=== PATIENT | male | born 1945 | race Caucasian/White ===

== ENCOUNTER 2016-08-28 09:33 | Emergency (ER) | payer OTHER ==
[~2016-08-28] VITALS: Ht 188 cm; Wt 99.0 kg
[2016-08-28 09:53] VITALS: BP 130/76; PULSE 80; RESP 16; TEMP 97.9
[2016-08-28] MEDS ORDERED: antidepressant (10:45)
[2016-08-28] MEDS ORDERED: ZOCO40TA PO (10:45)
[2016-08-28] MEDS ORDERED: antihypertensive (10:45)
[2016-08-28] MEDS ORDERED: CARB200T PO (10:45)
[2016-08-28] MEDS ORDERED: GABA300C5 PO (10:45)
--- NOTE | 2016-08-28 10:59 | PD ---
HPI Chief Complaint: Dizziness Time Seen by Provider: 10:39 Travel History International Travel<30 days: No Contact w/Intl Traveler<30days: No Traveled to known affect area: No History of Present Illness HPI 70-year-old male with history of seizure disorder, syncope, here for evaluation of head injury after possible syncopal event. At around 4:00 AM the patient was on his patio. He then walked into his house, but realized that his hearing aids on the ground and that he had a lump on his head. He does not recall falling or passing out. He does not believe he had a seizure as he usually has an aura prior to his seizures. He is not on any antiplatelets or anticoagulate. He now complains of right posterior/lateral head pain. No chest pain or dyspnea. No neck pain. No pain in any other joint or extremity. PFSH Past Medical History Hx Anticoagulant Therapy: Yes (asa 81mg) Depression: Yes Cardiovascular Problems: Yes (htn on meds) High Cholesterol: Yes Diminished Hearing: Yes (wears hearing aides bilat) Hypertension: Yes Seizures: Yes Influenza Vaccination: Yes Past Surgical History Surgical History: No Previous Surgery Social History Alcohol Use: Yes (rare) Tobacco Use: Yes (cigar occasionally) Substance Use: No Allergies-Medications (Allergen,Severity, Reaction): Coded Allergies: Penicillin (Verified Allergy, Unknown, Anaphylaxis, 08/28/16) Septra (Verified Allergy, Unknown, 08/28/16) Reported Meds & Prescriptions Reported Meds & Active Scripts Active Reported Aspirin Low Dose (Aspirin) 81 Mg Chew 81 Mg CHEW DAILY Zocor (Simvastatin) 40 Mg Tab 40 Mg PO DAILY Gabapentin 300 Mg Cap 900 Mg PO HS Carbamazepine 200 Mg Tab 200 Mg PO BID [antihypertensive] [antidepressant] Review of Systems Except as stated in HPI: all other systems reviewed are Neg Physical Exam Narrative GENERAL: Well-developed, well-nourished, awake, alert, no acute distress. SKIN: Right posterior/lateral scalp abrasion, superficial, no active bleeding, moderate-sized underlying hematoma. HEAD: Skin exam as above. Normocephalic. EYES: Pupils equal and round. No scleral icterus. No injection or drainage. ENT: No nasal bleeding or discharge. Mucous membranes pink and moist. NECK: Trachea midline. No JVD. No midline vertebral step-off or tenderness. CARDIOVASCULAR: Regular rate and rhythm. RESPIRATORY: No accessory muscle use. Clear to auscultation. Breath sounds equal bilaterally. GASTROINTESTINAL: Abdomen soft, non-tender, nondistended. MUSCULOSKELETAL: No obvious deformities. No clubbing. No cyanosis. No edema. NEUROLOGICAL: Awake and alert. No obvious cranial nerve deficits. Motor grossly within normal limits. Normal speech. PSYCHIATRIC: Appropriate mood and affect; insight and judgment normal. Data Data Last Documented VS Vital Signs Date Time Temp Pulse Resp B/P Pulse Ox O2 Delivery O2 Flow Rate FiO2 08/28/16 11:04 98 Room Air 08/28/16 09:53 97.9 80 16 130/76 Orders Electrocardiogram (08/28/16 10:54) Basic Metabolic Panel (Bmp) (08/28/16 10:54) Complete Blood Count With Diff (08/28/16 10:54) Ckmb (Isoenzyme) Profile (08/28/16 10:54) Troponin I (08/28/16 10:54) Act Partial Throm Time (Ptt) (08/28/16 10:54) Prothrombin Time / Inr (Pt) (08/28/16 10:54) Ct Brain W/O Iv Contrast(Rout) (08/28/16 10:54) Ct Cerv Spine W/O Contrast (08/28/16 10:54) Ecg Monitoring (08/28/16 10:54) Iv Access Insert/Monitor (08/28/16 10:54) Oximetry (08/28/16 10:54) Sodium Chloride 0.9% Flush (Ns Flush) (08/28/16 11:00) Tetanus/Diphtheria Tox Adult (Tetanus/Di (08/28/16 11:00) Labs Laboratory Tests Test 08/28/16 11:01 White Blood Count 6.2 TH/MM3 Red Blood Count 4.28 MIL/MM3 Hemoglobin 13.4 GM/DL Hematocrit 39.8 % Mean Corpuscular Volume 93.0 FL Mean Corpuscular Hemoglobin 31.2 PG Mean Corpuscular Hemoglobin 33.6 % Concent Red Cell Distribution Width 11.6 % Platelet Count 285 TH/MM3 Mean Platelet Volume 6.2 FL Neutrophils (%) (Auto) 81.7 % Lymphocytes (%) (Auto) 9.1 % Monocytes (%) (Auto) 7.1 % Eosinophils (%) (Auto) 0.9 % Basophils (%) (Auto) 1.2 % Neutrophils # (Auto) 5.0 TH/MM3 Lymphocytes # (Auto) 0.6 TH/MM3 Monocytes # (Auto) 0.4 TH/MM3 Eosinophils # (Auto) 0.1 TH/MM3 Basophils # (Auto) 0.1 TH/MM3 CBC Comment DIFF FINAL Differential Comment Prothrombin Time 10.4 SEC Prothromb Time International 0.9 RATIO Ratio Activated Partial 27.1 SEC Thromboplast Time Sodium Level 135 MEQ/L Potassium Level 4.4 MEQ/L Chloride Level 101 MEQ/L Carbon Dioxide Level 23.8 MEQ/L Anion Gap 10 MEQ/L Blood Urea Nitrogen 11 MG/DL Creatinine 0.88 MG/DL Estimat Glomerular Filtration 86 ML/MIN Rate Random Glucose 114 MG/DL Calcium Level 9.1 MG/DL Total Creatine Kinase 72 U/L Troponin I LESS THAN 0.02 NG/ML MDM Medical Decision Making Medical Screen Exam Complete: Yes Emergency Medical Condition: Yes Interpretation(s) EKG: Sinus, rate 77, left axis deviation, normal intervals, no acute ischemic abnormality. Differential Diagnosis Syncope, seizure, intracranial trauma, cervical spine injury Narrative Course Vital signs show heart rate 80, blood pressure 130/76, pulse ox 98% on room air , oral temp of 97.9F. CBC is essentially unremarkable. BMP is unremarkable. Cardiac enzymes are negative. CT head shows no acute intracranial abnormality. CT cervical spine shows degenerative changes without acute fracture. Tetanus updated. Patient and the patient's were made aware of all findings. He is resting comfortably. He tells me that he thinks he may have passed out because he did not sleep well last night and it was hot in his house. He would like to be discharged home and will follow-up with his primary care physician at the [facility] this week. He was informed on when to return to the emergency department. He verbalizes understanding and agreement with plan. Diagnosis Primary Impression: Closed head injury Qualified Code: S09.90XA - Closed head injury, initial encounter Additional Impression: Scalp abrasion Qualified Code: S00.01XA - Scalp abrasion, initial encounter Referrals: Primary Care Physician 3 days Additional Instructions: Follow-up with your primary care physician this week. Keep scalp wound clean with soap and water and apply triple antibiotic ointment. Return to the emergency department for worsening symptoms or any other concerns as discussed. Disposition: 01 DISCHARGE HOME Condition: Stable Tinoco,Ankush N MD Aug 28, 2016 10:59
[2016-08-28] MEDS ORDERED: SODIUM CHLORIDE 0.9% FLUSH 5 ML FLUSH IVF PRN (11:00)
[2016-08-28] MEDS ORDERED: TETANUS/DIPHTHERIA TOXOID ADULT 0.5 ML VIAL IM ONE (11:00)
[2016-08-28 11:04] VITALS: O2SAT 98
[2016-08-28 11:08] LABS: BASOPHIL # 0.1 TH/MM3 (0-0.2); BASOPHIL % 1.2 % (0.0-2.0); EOSINOPHIL # 0.1 TH/MM3 (0-0.4); EOSINOPHIL % 0.9 % (0.0-4.0); HEMATOCRIT 39.8 % (39.0-51.0); LYMPH % 9.1 % (9.0-44.0); LYMPHOCYTE # 0.6 TH/MM3 (1.0-4.8); MEAN CORPUSCULAR HEMOGLOBIN 31.2 PG (27.0-34.0); MEAN CORPUSCULAR HGB CONC 33.6 % (32.0-36.0); MONO % 7.1 % (0.0-8.0); NEUT % 81.7 % (16.0-70.0); PLATELET COUNT 285 TH/MM3 (150-450); RED BLOOD COUNT 4.28 MIL/MM3 (4.50-5.90); RED CELL DISTRIBUTION WIDTH 11.6 % (11.6-17.2); WHITE BLOOD COUNT 6.2 TH/MM3 (4.0-11.0)
[2016-08-28 11:16] LABS: CHLORIDE 101 MEQ/L (98-107); HEMO FLAGS DIFF FINAL; POTASSIUM 4.4 MEQ/L (3.5-5.1); SODIUM (NA) 135 MEQ/L (136-145)
[2016-08-28 11:19] LABS: ANION GAP 10 MEQ/L (5-15); BICARBONATE 23.8 MEQ/L (21.0-32.0)
[2016-08-28 11:20] LABS: APTT (PATIENT) 27.1 SEC (24.3-30.1); BLOOD UREA NITROGEN 11 MG/DL (7-18); INTERNATIONAL NORMALIZED RATIO 0.9 RATIO; PROTHROMBIN TIME - PATIENT 10.4 SEC (9.8-11.6)
[2016-08-28 11:23] LABS: GLOMERULAR FILTRATION RATE 86 ML/MIN (>89)
[2016-08-28 11:31] LABS: CREATINE KINASE 72 U/L (39-308)
[2016-08-28] MEDS ORDERED: ASPI81CH37 CHEW (11:31)
--- NOTE | 2016-08-28 12:22 | RADHPO ---
EXAM DATE/TIME: 08/28/2016 11:32 [facility] COMPARISON: No previous studies available for comparison. INDICATIONS : Possible syncopal episode with fall today, laceration to right side of head. RADIATION DOSE: 68.33 CTDIvol (mGy) MEDICAL HISTORY : Seizures. Hypertension. SURGICAL HISTORY : None. ENCOUNTER: Initial ACUITY: 1 day PAIN SCALE: 4/10 LOCATION: Right head TECHNIQUE: Multiple contiguous axial images were obtained of the head. Using automated exposure control and adj ustment of the mA and/or kV according to patient size, radiation dose was kept as low as reasonably a chievable to obtain optimal diagnostic quality images. FINDINGS: CEREBRUM: The ventricles are normal for age. No evidence of midline shift, mass lesion, hemorrhage or acute in farction. No extra-axial fluid collections are seen. POSTERIOR FOSSA: The cerebellum and brainstem are intact. The 4th ventricle is midline. The cerebellopontine angle i s unremarkable. EXTRACRANIAL: The visualized portion of the orbits is intact. SKULL: Right parietal scalp hematoma. The calvaria is intact. No evidence of skull fracture. CONCLUSION: No acute intracranial findings. Ryder Quezada MD on August 28, 2016 at 12:20 Board Certified Radiologist. This report was verified electronically.
--- NOTE | 2016-08-28 12:26 | RADHPO ---
EXAM DATE/TIME: 08/28/2016 11:32 [facility] COMPARISON: No previous studies available for comparison. INDICATIONS : Possible syncopal episode with fall today, laceration to right side of head RADIATION DOSE: 26.63 CTDIvol (mGy) MEDICAL HISTORY : Seizures. Hypertension. SURGICAL HISTORY : None. ENCOUNTER: Initial ACUITY: 1 day PAIN SCALE: 0/10 LOCATION: Bilateral neck TECHNIQUE: Volumetric scanning of the cervical spine was performed. Multiplanar reconstructions in the sagittal, coronal and oblique axial planes were performed. Using automated exposure control and adjustment o f the mA and/or kV according to patient size, radiation dose was kept as low as reasonably achievable to obtain optimal diagnostic quality images. FINDINGS: VERTEBRAE: Normal vertebral body height. No evidence of fracture. ALIGNMENT: 2 mm retrolisthesis C5 on C6. C2-C3: No evidence of focal disc protrusion. Central canal normal diameter. Neural foraminal diameters withi n normal limits. C3-C4: No evidence of focal disc protrusion. Central canal normal diameter. Neural foraminal diameters withi n normal limits. C4-C5: Broad-based disc osteophyte complex. Mild bilateral facet arthrosis. Mild central canal narrowing. Mi ld bilateral neural foraminal narrowing. C5-C6: Broad-based disc osteophyte complex. Moderate bilateral facet arthrosis. Mild to moderate central can al narrowing. Mild bilateral neuroforaminal narrowing. C6-C7: Broad-based disc osteophyte complex. Moderate bilateral facet arthrosis. Moderate central canal narro wing. Moderate bilateral neural foraminal narrowing. C7-T1: No evidence of focal disc protrusion. Central canal normal diameter. Neural foraminal diameters withi n normal limits. CONCLUSION: No evidence of fracture. Multilevel degenerative findings. Ryder Quezada MD on August 28, 2016 at 12:21 Board Certified Radiologist. This report was verified electronically.
[2016-08-28 12:57] VITALS: BP 128/70; PULSE 82; RESP 16; O2SAT 98
--- NOTE | 2016-08-29 14:40 | EKG ---
Date Performed: 08/28/2016 Time Performed: 11:07:32 PTAGE: 70 years EKG: Sinus rhythm Left axis deviation Abnormal ECG NO PREVIOUS TRACING DOCTOR: Onur Oakley Interpretating Date/Time 08/29/2016 14:34:24
== END 2016-08-28 13:06 | disposition home or self-care (01) ==
LOC: PHED 09:33
DX: S00.01XA Abrasion of scalp, initial encounter (principal); I10 Essential (primary) hypertension; F17.290 Nicotine dependence, other tobacco product, uncomplicated; R94.31 Abnormal electrocardiogram [ECG] [EKG]; X58.XXXA Exposure to other specified factors, initial encounter; Y92.009 Unspecified place in unspecified non-institutional (private) residence as the place of occurrence of the external cause; Z23 Encounter for immunization
CPT/HCPCS: 70450; 72125; 80048; 82550; 84484; 85025; 85610; 85730; 90471; 90714; 93005

== ENCOUNTER 2017-09-21 09:04 | Observation (INO) | payer OTHER ==
[~2017-09-21] VITALS: Ht 188 cm; Wt 104.8 kg
[2017-09-21] VITALS (7 sets, daily range): BP systolic 109–157; BP diastolic 65–75; PULSE 73–80; RESP 16–20; TEMP 96.7–98.2; O2SAT 98–100
[~2017-09-21 09:04] MED LIST: ASPI81CH6 CHEW; CARB200T PO; GABA300C5 PO; IOHEXOL 350 MG/ML 10 ML VIAL (for RAD DIAG) IVCONTRAST ONE; ZOCO40TA PO; antidepressant; antihypertensive
[2017-09-21] MEDS ORDERED: DIAZ5 PO (09:24)
[2017-09-21] MEDS ORDERED: ASPI-183 PO (09:24)
[2017-09-21] MEDS ORDERED: SODIUM CHLORIDE 0.9% FLUSH 10 ML FLUSH IVF PRN (09:30)
--- NOTE | 2017-09-21 09:35 | PD ---
HPI Chief Complaint: Numbness/Tingling Time Seen by Provider: 09:19 Travel History International Travel<30 days: No Contact w/Intl Traveler<30days: No Traveled to known affect area: No History of Present Illness HPI This patient woke up this morning feeling okay. At 8:30 AM he abruptly developed speech slurring and some numbness in his left hand. He denies having weakness anywhere. No headache or confusion. No right sided symptoms. His symptoms lasted about 5 minutes and resolved. When he arrives to the emergency room he is speaking normally and his sensory loss has resolved. He has no history of stroke or TIA. He took a full strength aspirin this morning because of the symptoms. Severity was moderate. No alleviating factors. No exacerbating factors. He does have history of epilepsy but has not had a seizure in a while. He reports compliance with his medications. PFSH Past Medical History Hx Anticoagulant Therapy: Yes (asa 81mg) Depression: Yes Cardiovascular Problems: Yes (htn on meds) High Cholesterol: Yes Diminished Hearing: Yes (wears hearing aides bilat) Hypertension: Yes Seizures: Yes Social History Alcohol Use: Yes (rare) Tobacco Use: Yes (cigar occasionally) Substance Use: No Allergies-Medications (Allergen,Severity, Reaction): Coded Allergies: penicillin G (Unverified Allergy, Unknown, Anaphylaxis, 09/21/17) sulfamethoxazole (Unverified Allergy, Unknown, 09/21/17) trimethoprim (Unverified Allergy, Unknown, 09/21/17) Reported Meds & Prescriptions Reported Meds & Active Scripts Active Reported Mucus Relief ER (Guaifenesin) 600 Mg Tab 400 Mg PO DAILY PRN Zolpidem (Zolpidem Tartrate) 10 Mg Tab 5 Mg PO HS PRN Topamax (Topiramate) 100 Mg Tab 100 Mg PO BID Valium (Diazepam) 5 Mg Tab 5 Mg PO BID Aspirin 325 Mg Tab 325 Mg PO DAILY Review of Systems General / Constitutional: No: Fever Eyes: No: Visual changes HENT: No: Headaches Cardiovascular: No: Chest Pain or Discomfort Respiratory: No: Shortness of Breath Gastrointestinal: No: Abdominal Pain Genitourinary: No: Dysuria Musculoskeletal: No: Pain Skin: No Rash Neurologic: Positive: Slurred Speech, Seizures, Sensory Disturbance, No: Weakness Psychiatric: No: Depression Endocrine: No: Polydipsia Hematologic/Lymphatic: No: Easy Bruising Physical Exam Narrative GENERAL: Well-nourished, well-developed patient in no apparent distress. He is hard of hearing SKIN: Focused skin assessment reveals no rash and nodules. Skin is Warm and dry. HEAD: Atraumatic. Normocephalic. EYES: Pupils equal and round. No scleral icterus. No injection or drainage. ENT: No nasal bleeding or discharge. Mucous membranes pink and moist. NECK: Trachea midline. No JVD. CARDIOVASCULAR: Regular rate and rhythm. No murmur appreciated. RESPIRATORY: No accessory muscle use. Clear to auscultation. Breath sounds equal bilaterally. GASTROINTESTINAL: Abdomen soft, non-tender, nondistended. Hepatic and splenic margins not palpable. MUSCULOSKELETAL: No obvious deformities. No clubbing. No cyanosis. No edema. NEUROLOGICAL: Awake and alert. No obvious cranial nerve deficits. Motor grossly within normal limits. Normal speech. Sensation subjectively intact to sharp and light touch PSYCHIATRIC: Appropriate mood and affect; insight and judgment normal. Data Data Last Documented VS Vital Signs Date Time Temp Pulse Resp B/P (MAP) Pulse Ox O2 Delivery O2 Flow Rate FiO2 09/21/17 09:38 100 09/21/17 09:14 97.8 73 16 157/68 (97) Orders Orders Electrocardiogram (09/21/17 09:27) Prothrombin Time / Inr (Pt) (09/21/17:27) Act Partial Throm Time (Ptt) (09/21/17 09:27) Complete Blood Count With Diff (09/21/17 09:27) Basic Metabolic Panel (Bmp) (09/21/17 09:27) Ct Brain W/O Iv Contrast(Rout) (09/21/17 09:27) Ecg Monitoring (09/21/17:27) Iv Access Insert/Monitor (09/21/17 09:27) Oximetry (09/21/17 09:27) Sodium Chloride 0.9% Flush (Ns Flush) (09/21/17 09:30) Admit Order (Ed Use Only) (09/21/17 10:57) Labs Laboratory Tests Test 09/21/17 09:35 White Blood Count 4.5 TH/MM3 Red Blood Count 4.33 MIL/MM3 Hemoglobin 13.4 GM/DL Hematocrit 39.8 % Mean Corpuscular Volume 91.8 FL Mean Corpuscular Hemoglobin 31.0 PG Mean Corpuscular Hemoglobin Concent 33.7 % Red Cell Distribution Width 11.7 % Platelet Count 228 TH/MM3 Mean Platelet Volume 6.3 FL Neutrophils (%) (Auto) 72.9 % Lymphocytes (%) (Auto) 16.9 % Monocytes (%) (Auto) 6.2 % Eosinophils (%) (Auto) 3.3 % Basophils (%) (Auto) 0.7 % Neutrophils # (Auto) 3.3 TH/MM3 Lymphocytes # (Auto) 0.8 TH/MM3 Monocytes # (Auto) 0.3 TH/MM3 Eosinophils # (Auto) 0.1 TH/MM3 Basophils # (Auto) 0.0 TH/MM3 CBC Comment DIFF FINAL Differential Comment Prothrombin Time 10.1 SEC Prothromb Time International Ratio 1.0 RATIO Activated Partial Thromboplast Time 27.5 SEC Blood Urea Nitrogen 17 MG/DL Creatinine 1.10 MG/DL Random Glucose 107 MG/DL Calcium Level 8.6 MG/DL Sodium Level 140 MEQ/L Potassium Level 4.1 MEQ/L Chloride Level 106 MEQ/L Carbon Dioxide Level 26.8 MEQ/L Anion Gap 7 MEQ/L Estimat Glomerular Filtration Rate 66 ML/MIN [facility] Medical Decision Making Medical Screen Exam Complete: Yes Emergency Medical Condition: Yes Medical Record Reviewed: Yes Differential Diagnosis TIA, CVA, intracranial hemorrhage, postictal state Narrative Course I have reviewed the patient's electronic medical record. he was here in 2017 for head injury Patient may have had a TIA. He is not a stroke alert as his symptoms have resolved. He is not a TPA candidate because of the fact his symptoms are gone. They were fairly brief however only a few minutes I've ordered neurologic workup to include EKG and brain CT and labs EKG shows sinus rhythm and lab studies are normal Brain CT shows a new subacute evolving infarct on the left side I would've expected a right sided infarct given his left hand numbness Regardless he is admitted for ischemic CVA and I reviewed with the hospitalist Diagnosis Primary Impression: Neurologic deficit due to acute ischemic cerebrovascular accident (CVA) Admitting Information Admitting Physician Requests: Garland Dowell MD Sep 21, 2017 09:35
[2017-09-21 09:44] LABS: AUTOMATED NEUTROPHIL # 3.3 TH/MM3 (1.8-7.7); BASOPHIL % 0.7 % (0.0-2.0); EOSINOPHIL # 0.1 TH/MM3 (0-0.4); EOSINOPHIL % 3.3 % (0.0-4.0); HEMATOCRIT 39.8 % (39.0-51.0); HEMOGLOBIN 13.4 GM/DL (13.0-17.0); LYMPH % 16.9 % (9.0-44.0); LYMPHOCYTE # 0.8 TH/MM3 (1.0-4.8); MEAN CELL VOLUME 91.8 FL (80.0-100.0); MEAN CORPUSCULAR HGB CONC 33.7 % (32.0-36.0); MEAN PLATELET VOLUME 6.3 FL (7.0-11.0); MONO % 6.2 % (0.0-8.0); MONOCYTE # 0.3 TH/MM3 (0-0.9); NEUT % 72.9 % (16.0-70.0); PLATELET COUNT 228 TH/MM3 (150-450); RED BLOOD COUNT 4.33 MIL/MM3 (4.50-5.90); RED CELL DISTRIBUTION WIDTH 11.7 % (11.6-17.2); WHITE BLOOD COUNT 4.5 TH/MM3 (4.0-11.0)
[2017-09-21] MEDS ORDERED: GUAI600T11 PO (09:53)
[2017-09-21] MEDS ORDERED: ZOLP10TA3 PO (09:53)
[2017-09-21] MEDS ORDERED: TOPI100 PO (09:53)
[2017-09-21 09:54] LABS: CALCIUM 8.6 MG/DL (8.5-10.1)
--- NOTE | 2017-09-21 09:54 | RADRPT ---
EXAM DATE/TIME: 09/21/2017 09:37 [facility] COMPARISON: CT BRAIN W/O CONTRAST, August 28, 2016, 11:32. INDICATIONS : Resolved slurred speech. Left arm and hand tingling and numbness x 1 hour. Evaluate for cerebrovasc ular accident. RADIATION DOSE: 62.13 CTDIvol (mGy) MEDICAL HISTORY : Seizures. Hypertension. SURGICAL HISTORY : None. ENCOUNTER: Initial ACUITY: 1 day PAIN SCALE: 0/10 LOCATION: cranial TECHNIQUE: Multiple contiguous axial images were obtained of the head. Using automated exposure control and adj ustment of the mA and/or kV according to patient size, radiation dose was kept as low as reasonably a chievable to obtain optimal diagnostic quality images. DICOM format image data is available electro nically for review and comparison. FINDINGS: There is a focal area of decreased attenuation in the left frontal lobe measuring about 2.8 cm in ysabel meter most characteristic of an evolving subacute infarct. No mass or midline shift. No hydrocephalus . No abnormal extra-axial fluid collections. CONCLUSION: 1. Evolving small subacute infarct in the left frontal lobe which is a new finding since August 28. Kareem Graham MD on September 21, 2017 at 9:48 Board Certified Radiologist. This report was verified electronically.
[2017-09-21 09:55] LABS: BICARBONATE 26.8 MEQ/L (21.0-32.0)
[2017-09-21 09:57] LABS: PROTHROMBIN TIME - PATIENT 10.1 SEC (9.8-11.6)
[2017-09-21 09:58] LABS: CREATININE 1.1 MG/DL (0.60-1.30)
[2017-09-21] MEDS ORDERED: SODIUM CHLORIDE 0.9% FLUSH 10 ML FLUSH IV FLUSH PRN ×2 (11:00→11:15)
[2017-09-21] MEDS ORDERED: ONDANSETRON HCL 4 MG/2 ML VIAL IVP PRN (11:00)
[2017-09-21] MEDS ORDERED: NALOXONE HCL 0.4 MG/ML AMP IV PUSH PRN (11:00)
[2017-09-21] MEDS ORDERED: MAGNESIUM HYDROXIDE SUSP 30 ML CUP PO PRN (11:00)
--- NOTE | 2017-09-21 11:08 | HHI.HP ---
[facility] Admission Diagnosis acute ischemic CVA Diagnoses: Travel History International Travel<30 Days: No Contact w/Intl Traveler <30 Da: No Traveled to Known Affected Are: No History of Present Illness Mr. Dasilva is a 71 year old male. He reports that at approximately 8:30 AM this morning with slurred speech and numbness of his left hand, this occurred after he was awake and when he was talking with a repair man. Symptoms have not fully resolved but he has resolution of his speech back to baseline and improving weakness at his left hand.. CT scan in the ER is positive for evidence of acute CVA. No prior history of CVA or TIA is known by the patient. He has taken an aspirin at home with onset of symptoms. He does have a history of seizure in the past, his last seizure was approximately 3 months ago. No missed doses of medications. He does say in the past several months he is also been having frontal headaches. Review of Systems Constitutional: DENIES: Fatigue, Fever, Chills, Night Sweats Eyes: DENIES: Blurred vision, Diplopia, Eye inflammation Ears, nose, mouth, throat: DENIES: Tinnitus, Hearing loss, Vertigo Respiratory: DENIES: Cough, Wheezing, Shortness of breath Cardiovascular: DENIES: Chest pain, Palpitations, Syncope Gastrointestinal: DENIES: Abdominal pain, Black stools, Bloody stools, Constipation Musculoskeletal: DENIES: Joint pain, Muscle aches, Stiffness Integumentary: DENIES: Abnormal pigmentation, Nail changes, Pruritus, Rash Hematologic/lymphatic: DENIES: Bruising, Lymphadenopathy Immunologic/allergic: COMPLAINS OF: Eczema, Urticaria Neurologic: COMPLAINS OF: Localized weakness, Speech Problems, DENIES: Headache , Paresthesias Psychiatric: DENIES: Anxiety, Confusion, Depression Past Family Social History Past Medical History Seizure disorder Hypertension Hyperlipidemia Presbycusis Depression Mnire's disease Headaches Past Surgical History None Reported Medications Reported Meds & Active Scripts Active Reported Mucus Relief ER (Guaifenesin) 600 Mg Tab 400 Mg PO DAILY PRN Zolpidem (Zolpidem Tartrate) 10 Mg Tab 5 Mg PO HS PRN Topamax (Topiramate) 100 Mg Tab 100 Mg PO BID Valium (Diazepam) 5 Mg Tab 5 Mg PO BID Aspirin 325 Mg Tab 325 Mg PO DAILY Allergies: Coded Allergies: penicillin G (Unverified Allergy, Unknown, Anaphylaxis, 09/21/17) sulfamethoxazole (Unverified Allergy, Unknown, 09/21/17) trimethoprim (Unverified Allergy, Unknown, 09/21/17) Family History Alzheimer's disease in father Social History Alcohol Use: Yes (rare) Tobacco Use: Yes (cigar occasionally) Substance Use: No Physical Exam Vital Signs Vital Signs Date Time Temp Pulse Resp B/P (MAP) Pulse Ox O2 Delivery O2 Flow Rate FiO2 09/21/17 09:38 100 09/21/17 09:14 97.8 73 16 157/68 (97) 100 Physical Exam GENERAL: NAD, A&Ox3 HEAD: Normocephalic. NECK: Supple, trachea midline. No lymphadenopathy. EYES: No scleral icterus. No injection or drainage. CARDIOVASCULAR: Regular rate and rhythm without murmurs, gallops, or rubs. RESPIRATORY: Breath sounds equal bilaterally. No accessory muscle use. GASTROINTESTINAL: Abdomen soft, non-tender, nondistended. MUSCULOSKELETAL: No cyanosis, or edema. SKIN: Warm and dry. NEURO: Mild weakness at left hand. Laboratory Laboratory Tests Test 09/21/17 09:35 White Blood Count 4.5 Red Blood Count 4.33 Hemoglobin 13.4 Hematocrit 39.8 Mean Corpuscular Volume 91.8 Mean Corpuscular Hemoglobin 31.0 Mean Corpuscular Hemoglobin Concent 33.7 Red Cell Distribution Width 11.7 Platelet Count 228 Mean Platelet Volume 6.3 Neutrophils (%) (Auto) 72.9 Lymphocytes (%) (Auto) 16.9 Monocytes (%) (Auto) 6.2 Eosinophils (%) (Auto) 3.3 Basophils (%) (Auto) 0.7 Neutrophils # (Auto) 3.3 Lymphocytes # (Auto) 0.8 Monocytes # (Auto) 0.3 Eosinophils # (Auto) 0.1 Basophils # (Auto) 0.0 CBC Comment DIFF FINAL Differential Comment Prothrombin Time 10.1 Prothromb Time International Ratio 1.0 Activated Partial Thromboplast Time 27.5 Blood Urea Nitrogen 17 Creatinine 1.10 Random Glucose 107 Calcium Level 8.6 Sodium Level 140 Potassium Level 4.1 Chloride Level 106 Carbon Dioxide Level 26.8 Anion Gap 7 Estimat Glomerular Filtration Rate 66 Result Diagram: 09/21/1735 09/21/1735 Caprini VTE Risk Assessment Caprini VTE Risk Assessment: No/Low Risk (score <= 1) Caprini Risk Assessment Model Point Value = 1 Point Value = 2 Point Value = 3 Point Value = 5 Age 41-60 Minor surgery BMI > 25 kg/m2 Swollen legs Varicose veins or History of unexplained or recurrent spontaneous Oral contraceptives or hormone replacement Sepsis (< 1 month) Serious lung disease, including pneumonia (< 1 month) Abnormal pulmonary function Acute myocardial infarction Congestive heart failure (< 1 month) History of inflammatory bowel disease Medical patient at bed rest Age 61-74 Arthroscopic surgery Major open surgery (> 45 min) Laparoscopic surgery (> 45 min) Malignancy Confined to bed (> 72 hours) Immobilizing plaster cast Central venous access Age >= 75 History of VTE Family history of VTE Factor V Leiden Prothrombin [id number] Lupus anticoagulant Anticardiolipin antibodies Elevated serum homocysteine Heparin-induced thrombocytopenia Other congenital or acquired thrombophilia Stroke (< 1 month) Elective arthroplasty Hip, pelvis, or leg fracture Acute spinal cord injury (< 1 month) Prophylaxis Regimen Total Risk Factor Score Risk Level Prophylaxis Regimen 0-1 Low Early ambulation 2 Moderate Order ONE of the following: *Sequential Compression Device (SCD) *Heparin 5000 units SQ BID 3-4 Higher Order ONE of the following medications: *Heparin 5000 units SQ TID *Enoxaparin/Lovenox 40 mg SQ daily (WT < 150 kg, CrCl > 30 mL/min) *Enoxaparin/Lovenox 30 mg SQ daily (WT < 150 kg, CrCl > 10-29 mL/min) *Enoxaparin/Lovenox 30 mg SQ BID (WT < 150 kg, CrCl > 30 mL/min) AND/OR *Sequential Compression Device (SCD) 5 or more Highest Order ONE of the following medications: *Heparin 5000 units SQ TID (Preferred with Epidurals) *Enoxaparin/Lovenox 40 mg SQ daily (WT < 150 kg, CrCl > 30 mL/min) *Enoxaparin/Lovenox 30 mg SQ daily (WT < 150 kg, CrCl > 10-29 mL/min) *Enoxaparin/Lovenox 30 mg SQ BID (WT < 150 kg, CrCl > 30 mL/min) AND *Sequential Compression Device (SCD) Assessment and Plan Problem List: (1) Neurologic deficit due to acute ischemic cerebrovascular accident (CVA) ICD Code: I63.9 - Cerebral infarction, unspecified; R29.818 - Other symptoms and signs involving the nervous system Status: Acute Assessment and Plan 71-year-old male admitted secondary to acute CVA symptoms Acute CVA Recurrent headaches Positive CT findings Obtain MRI Neurology consult Carotid ultrasound Echocardiogram Follow neurologic status Seizure disorder No recent seizure Continue baseline treatments Follow clinically Hypertension Continue baseline treatment Follow blood pressures Adjust treatments as needed Hyperlipidemia Continue present treatment Follow as an outpatient Presbycusis Mnire's disease Continue hearing aids as needed Depression Continue baseline treatment DVT prophylaxis SCDs Yohannes Meneses MD Sep 21, 2017 11:08
[2017-09-21] MEDS ORDERED: GLUCAGON 1 MG/ML VIAL OTHER PRN (11:15)
[2017-09-21] MEDS ORDERED: DEXTROSE 50% IN WATER 50 ML VIAL(D50) IV PUSH PRN (11:15)
--- NOTE | 2017-09-21 11:58 | RADRPT ---
EXAM DATE/TIME: 09/21/2017 11:25 [facility] COMPARISON: No previous studies available for comparison. INDICATIONS : Cerebrovascular accident. MEDICAL HISTORY : Seizures. Hypertension. SURGICAL HISTORY : None. ENCOUNTER: Initial ACUITY: 1 day PAIN SCORE: 0/10 LOCATION: Bilateral neck PEAK SYSTOLIC VELOCITIES (cm/sec): ICA/CCA RATIO: Right: 0.9 Left: 0.9 ICA: Right: 72 Left: 79 CCA: Right: 81 Left: 90 ECA: Right: 88 Left: 98 VERTEBRAL: Right: 53 antegrade Left: 36 antegrade Elevated flow velocities and ICA/CCA ratios have been found to correlate with increased degrees of vessel stenosis, calculated as percentage of diameter relative to a normal segment of distal ICA/CCA FINDINGS: RIGHT CAROTID: No significant stenosis is visualized. The waveforms are within normal limits. LEFT CAROTID: No significant stenosis is visualized. The waveforms are within normal limits. VERTEBRAL ARTERIES: Antegrade flow is seen in both vertebral arteries. MISCELLANEOUS: None. CONCLUSION: 1. Mild plaque formation in the carotid arteries bilaterally. No hemodynamically significant stenosis . Kareem Graham MD on September 21, 2017 at 11:55 Board Certified Radiologist. This report was verified electronically.
[2017-09-21] MEDS: INSULIN ASPART SUPPLEMENTAL SCALE SQ SCH ×3 (12:00→21:00)
[2017-09-21] MEDS ORDERED: ZOLPIDEM TARTRATE 10 MG TAB PO PRN (12:00)
--- NOTE | 2017-09-21 12:47 | RADRPT ---
EXAM DATE/TIME: 09/21/2017 12:33 [facility] COMPARISON: No previous studies available for comparison. INDICATIONS : Stroke. Left sided weakness. MEDICAL HISTORY : Seizures. Cardiac murmurs. SURGICAL HISTORY : None. ENCOUNTER: Initial ACUITY: 1 day PAIN SCORE: 4/10 LOCATION: Bilateral cranial TECHNIQUE: Multiplanar, multisequence MRI of the brain was performed without contrast. FINDINGS: CEREBRUM: T2 signal abnormality in the left frontal lobe which extends to the cortex, likely old infarct. The v entricles are normal for age. No evidence of midline shift, mass lesion, hemorrhage or acute infarct ion. No extraaxial fluid collections are seen. The pituitary gland and suprasellar cistern are norm al in configuration. WHITE MATTER: A few scattered foci of bright T2 signal abnormalities are seen in the white matter. POSTERIOR FOSSA: The cerebellum and brainstem are intact. The 4th ventricle is midline. The cerebellopontine angle is unremarkable. The cerebellar tonsils are normal in position. DIFFUSION IMAGING: No focal areas of restricted diffusion are seen. No evidence of acute infarction. EXTRACRANIAL: The visualized portions of the orbits and paranasal sinuses are unremarkable. CONCLUSION: 1. Old small infarct left frontal lobe. 2. No acute infarct seen. 3. Minimal nonspecific white matter changes. Master Skaggs MD on September 21, 2017 at 12:44 Board Certified Radiologist. This report was verified electronically.
--- NOTE | 2017-09-21 13:15 | RADRPT ---
EXAM DATE/TIME: 09/21/2017 12:33 [facility] COMPARISON: MRI BRAIN W/O CONTRAST, September 21, 2017, 12:33. INDICATIONS : Stroke. Left arm weakness for one day. MEDICAL HISTORY : Seizures. Cardiac murmurs SURGICAL HISTORY : None. ENCOUNTER: Initial ACUITY: 1 day PAIN SCORE: 4/10 LOCATION: Right arm. Please note a normal MRA of the brain does not entirely exclude the possibility of a small aneurysm, nor the possibility of distal intracranial vessel disease. TECHNIQUE: 3D time of flight MRA was performed. Source images, multiplanar STS MIP, and 3D volume MIP reconstru ctions were reviewed. FINDINGS: Both distal internal carotid arteries are widely patent. The basilar artery is patent Examination of the middle cerebral circulation demonstrates an area of narrowing in the distal M1 seg ment on the right. There appear to be significantly fewer M3 branches seen on the right than the left as well. This would suggest possible embolic disease. The anterior cerebral circulation is within normal limits bilaterally. The middle cerebral circulatio n on the left is normal in appearance. The posterior cerebral circulation is widely patent. 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 Yohannes Escamilla MD on September 21, 2017 at 13:11 Board Certified Radiologist. This report was verified electronically.
--- NOTE | 2017-09-21 13:23 | EKG ---
Date Performed: 09/21/2017 Time Performed: 09:34:44 PTAGE: 71 years EKG: Sinus rhythm RIGHT BUNDLE BRANCH BLOCK LEFT ANTERIOR FASCICULAR BLOCK Compared to previous tracing right bundle b ranch block is new ABNORMAL ECG PREVIOUS TRACING : 08/28/2016 11.07 DOCTOR: Archana De Los Santos Interpretating Date/Time 09/21/2017 13:22:09
--- NOTE | 2017-09-21 15:41 | MB ---
cc: Ranjith Rust MD DATE OF CONSULT: HISTORY OF PRESENT ILLNESS: He is 71 years old, seen in consultation. The patient was doing well this morning when he developed slurring of his speech when he was talking to someone working his air conditioner at around 8:30 in the morning. There was some numbness in the left hand. The symptoms improved significantly, though the left-handed deficits are not completely resolved. No longer slurring. He came to the emergency room and had a CT brain that showed subacute infarct left frontal lobe but the MRI brain subsequently describes this as an old small left frontal lobe infarct. Evidently, this finding did not correlate with his left upper extremity symptoms. The carotid ultrasound showed mild plaque and the MRA head shows possible distal embolic disease, right MCA. EKG shows sinus rhythm. The patient rarely takes any aspirin. He takes simvastatin on a regular basis. He has a history of seizures and had been on carbamazepine. He follows at the [facility]. He was apparently not doing well in terms of seizure control with the carbamazepine and was switched to Topamax. Topamax was 100 mg twice a day and it made him dizzy and recently he dropped to 50 mg a day to the advice of the neurologist. He has had seizures since 2001. No seizures recently. He was started on aspirin. NEUROLOGIC: Showed normal mentation. His speech is probably baseline. His spouse arrived right during the evaluation and felt his speech was okay. His left upper extremity is minimally weak, but there is a little bit of pronation drift and probably fine finger coordination impairment on the left. The left lower extremity exam is showing symmetrical strength to the right. Reflexes were 1 to 2+ throughout. Plantar responses flexor. ASSESSMENT AND PLAN: Partially resolved neurologic symptoms including dysarthria, which is improved, and left upper extremity weakness, which is minimally present at this point. Old stroke, small, left frontal, which is incidental at this point. History of seizures apparently since 2001, currently on small dose of topiramate at home as discussed above as he had some dizziness with higher dose. Here in the hospital, the topiramate dose was increased to 100 mg twice a day. Check a lipid profile and I am going to order CT angio head and neck taking consideration the MRA head findings and the clinical picture suggesting some residual deficits despite a negative MRI brain for an acute process. Thank you for asking us to assist in his care. 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 MD MATILDE Thompson/TONI , 03:15 PM , 03:40 PM
[2017-09-21 16:35] LABS: HEMOGLOBIN A1C 5.1 % (4.3-6.0)
[2017-09-21] MEDS: DIAZEPAM 5 MG TAB PO SCH (16:54)
[2017-09-21 17:46] LABS: CHOLESTEROL/ HDL RATIO 3.23 RATIO; HDL CHOLESTEROL 38.3 MG/DL (40.0-60.0)
[2017-09-21] MEDS ORDERED: SODIUM CHLORIDE 0.9% FLUSH 10 ML FLUSH IV FLUSH SCH (21:00)
[2017-09-21] MEDS ORDERED: DIAZEPAM 5 MG TAB PO SCH (21:00)
[2017-09-21] MEDS: TOPIRAMATE 100 MG TAB PO SCH (21:02)
[2017-09-21] MEDS: SODIUM CHLORIDE 0.9% FLUSH 10 ML FLUSH IV FLUSH SCH (21:02)
[2017-09-22] VITALS: BP 119/57; PULSE 69; RESP 16; TEMP 97.4; O2SAT 98
[2017-09-22 04:00] VITALS: BP 137/81; PULSE 83; RESP 16; TEMP 98.2; O2SAT 98
[2017-09-22 06:04] LABS: AUTOMATED NEUTROPHIL # 4.4 TH/MM3 (1.8-7.7); BASOPHIL % 0.7 % (0.0-2.0); EOSINOPHIL # 0.2 TH/MM3 (0-0.4); EOSINOPHIL % 3.7 % (0.0-4.0); HEMATOCRIT 39.9 % (39.0-51.0); HEMOGLOBIN 13.4 GM/DL (13.0-17.0); LYMPH % 13.5 % (9.0-44.0); LYMPHOCYTE # 0.7 TH/MM3 (1.0-4.8); MEAN CELL VOLUME 91.5 FL (80.0-100.0); MEAN CORPUSCULAR HEMOGLOBIN 30.8 PG (27.0-34.0); MEAN CORPUSCULAR HGB CONC 33.7 % (32.0-36.0); MEAN PLATELET VOLUME 7.1 FL (7.0-11.0); MONO % 5.8 % (0.0-8.0); MONOCYTE # 0.3 TH/MM3 (0-0.9); NEUT % 76.3 % (16.0-70.0); PLATELET COUNT 216 TH/MM3 (150-450); RED BLOOD COUNT 4.36 MIL/MM3 (4.50-5.90); RED CELL DISTRIBUTION WIDTH 11.6 % (11.6-17.2); WHITE BLOOD COUNT 5.6 TH/MM3 (4.0-11.0)
[2017-09-22 06:19] LABS: CHLORIDE 107 MEQ/L (98-107); SODIUM (NA) 138 MEQ/L (136-145)
[2017-09-22 06:24] LABS: ALBUMIN 3.6 GM/DL (3.4-5.0); BICARBONATE 22.8 MEQ/L (21.0-32.0); BLOOD UREA NITROGEN 12 MG/DL (7-18); CALCIUM 8.6 MG/DL (8.5-10.1); GLUCOSE,RANDOM 89 MG/DL (74-106)
[2017-09-22 06:27] LABS: ALT (GPT) 37 U/L (12-78); AST (GOT) 21 U/L (15-37); CREATININE 0.91 MG/DL (0.60-1.30); GLOMERULAR FILTRATION RATE 83 ML/MIN (>89)
[2017-09-22 06:29] LABS: TOTAL BILIRUBIN ADULT 0.3 MG/DL (0.2-1.0); TOTAL PROTEIN 7.1 GM/DL (6.4-8.2)
[2017-09-22 06:30] LABS: ALKALINE PHOSPHATASE 107 U/L (45-117)
--- NOTE | 2017-09-22 06:43 | RADRPT ---
EXAM DATE/TIME: 09/22/2017 00:12 [facility] COMPARISON: No previous studies available for comparison. INDICATIONS : Left arm weakness for one day. IV CONTRAST: 100 cc Omnipaque 350 (iohexol) IV ; Cumulative dose for multiple exams. RADIATION DOSE: 42.32 CTDIvol (mGy) ; Combined studies MEDICAL HISTORY : Hypertension. Seizures. Meniere's disease SURGICAL HISTORY : None. ENCOUNTER: Initial ACUITY: 1 day PAIN SCALE: 5/10 LOCATION: Left arm TECHNIQUE: Volumetric scanning was performed using a multi-row detector CT scanner. The data was post processed with a variety of visualization algorithms including full volume maximum intensity projection, multi -planar sliding thin slab reformation, curved planar reformation, and surface rendering techniques. Using automated exposure control and adjustment of the mA and/or kV according to patient size, radiat ion dose was kept as low as reasonably achievable to obtain optimal diagnostic quality images. DICO M format image data is available electronically for review and comparison. FINDINGS: There is excellent visualization of the major intracranial arteries out to the second-order branch ve ssels. There is no evidence for aneurysm, vessel truncation or stenosis, and no evidence for vascula r malformation. [place] is complete. CONCLUSION: Negative exam. Intracranial vessels are all patent without aneurysmal disease. Jeff Cheung MD on September 22, 2017 at 6:39 Board Certified Radiologist. This report was verified electronically.
[2017-09-22 07:00] VITALS: PULSE 75
--- NOTE | 2017-09-22 07:00 | RADRPT ---
EXAM DATE/TIME: 09/22/2017 00:12 [facility] COMPARISON: No previous studies available for comparison. INDICATIONS : Left arm weakness, possible stroke. IV CONTRAST: 100 cc Omnipaque 350 (iohexol) IV ; Cumulative dose for multiple exams. RADIATION DOSE: 42.32 CTDIvol (mGy) ; Combined studies MEDICAL HISTORY : Hypertension. Seizures. Meniere's disease SURGICAL HISTORY : None. ENCOUNTER: Initial ACUITY: 1 day PAIN SCALE: 5/10 LOCATION: Left arm Elevated flow velocities and ICA/CCA ratios have been found to correlate with increased degrees of vessel stenosis, calculated as percentage of diameter relative to a normal segment of distal ICA/CCA. TECHNIQUE: Volumetric scanning was performed using a multirow detector CT scanner. The data was post processed with a variety of visualization algorithms including full-volume maximum intensity projection, multip lanar sliding thin-slab reformation, curved-planar reformation, and surface-rendering techniques. Us ing automated exposure control and adjustment of the mA and/or kV according to patient size, radiatio n dose was kept as low as reasonably achievable to obtain optimal diagnostic quality images. DICOM f ormat image data is available electronically for review and comparison. FINDINGS: AORTIC ARCH: Bovine arch. Normal atherosclerotic calcification but the arch vessels are patent. RIGHT CAROTID: The common carotid artery is intact. Some atherosclerotic calcification in the carotid bulb extending up into the proximal internal. The internal carotid artery lumen is smooth without stenosis. The ex ternal carotid artery is intact. LEFT CAROTID: The common carotid artery is intact. Some atherosclerotic calcification in the carotid bulb extending into the internal. The internal carotid artery lumen is smooth without stenosis. The external fischer tid artery is intact. VERTEBRALS: The vertebral arteries have a symmetric diameter. No stenotic lesions are seen. CONCLUSION: 1. Scattered atherosclerotic calcification but the arch and cervical vessels are patent with no signi ficant stenosis. 2. Bovine arch. Jeff Cheung MD on September 22, 2017 at 6:54 Board Certified Radiologist. This report was verified electronically.
[2017-09-22] MEDS: INSULIN ASPART SUPPLEMENTAL SCALE SQ SCH ×2 (07:40→11:43)
[2017-09-22] MEDS: DIAZEPAM 5 MG TAB PO SCH (07:41)
[2017-09-22 08:00] VITALS: BP 146/83; PULSE 87; RESP 20; TEMP 96.7; O2SAT 96
[2017-09-22] MEDS ORDERED: ASPIRIN 325 MG TAB PO SCH (09:00)
[2017-09-22] MEDS: TOPIRAMATE 100 MG TAB PO SCH (09:57)
[2017-09-22] MEDS: SODIUM CHLORIDE 0.9% FLUSH 10 ML FLUSH IV FLUSH SCH (09:57)
[2017-09-22 10:18] LABS: CHOLESTEROL 130 MG/DL (120-200); TRIGLYCERIDES 96 MG/DL (42-150)
[2017-09-22 10:20] LABS: CHOLESTEROL/ HDL RATIO 3.49 RATIO; HDL CHOLESTEROL 37.2 MG/DL (40.0-60.0); LDL CHOLESTEROL 74 MG/DL (0-99)
[2017-09-22 12:00] VITALS: BP 120/58; PULSE 76; RESP 20; TEMP 96.7; O2SAT 97
--- NOTE | 2017-09-22 14:00 | ECHRPT ---
Indication: CVA/TIA CONCLUSIONS Normal left ventricular size and wall thickness. The left ventricular systolic function is normal wi th an estimated ejection fraction in the range of 60-65%. Normal wall motion. Trace mitral valve regurgitation. There is trace tricuspid valve regurgitation. BP: 137 / 81 HR: 83 Rhythm: Sinus MEASUREMENTS (Male / Female) Normal Values Technical Quality:Fair 2D ECHO LV Diastolic Diameter PLAX 4.7 cm 4.2 - 5.9 / 3.9 - 5.3 cm LV Systolic Diameter PLAX 3.1 cm IVS Diastolic Thickness 1.1 cm 0.6 - 1.0 / 0.6 - 0.9 cm LVPW Diastolic Thickness 1.1 cm 0.6 - 1.0 / 0.6 - 0.9 cm LV Relative Wall Thickness 0.4 RV Internal Dim ED PLAX 2.9 cm LVOT Diameter 2.1 cm Aortic Root Diameter 2.8 cm LA Systolic Diameter LX 3.7 cm 3.0 - 4.0 / 2.7 - 3.8 cm M-MODE AV Cusp Separation MM 2.4 cm DOPPLER AV Peak Velocity 175.0 cm/s AV Peak Gradient 12.3 mmHg AV Mean Gradient 7.0 mmHg AV Velocity Time Integral 34.3 cm LVOT Peak Velocity 95.5 cm/s LVOT Peak Gradient 3.6 mmHg LVOT Velocity Time Integral 18.9 cm AV Area Cont Eq vti 1.9 cm AV Area Cont Eq pk 1.9 cm Mitral E Point Velocity 90.3 cm/s Mitral A Point Velocity 109.0 cm/s Mitral E to A Ratio 0.8 LV E' Lateral Velocity 6.2 cm/s Mitral E to LV E' Lateral Ratio 14.5 LV E' Septal Velocity 8.1 cm/s Mitral E to LV E' Septal Ratio 11.2 PV Peak Velocity 51.9 cm/s PV Peak Gradient 1.1 mmHg FINDINGS LEFT VENTRICLE Normal left ventricular size and wall thickness. The left ventricular systolic function is normal wi th an estimated ejection fraction in the range of 60-65%. Normal wall motion. RIGHT VENTRICLE Normal right ventricular size and systolic function. LEFT ATRIUM The left atrial size is normal. RIGHT ATRIUM The right atrial size is normal. ATRIAL SEPTUM No atrial level shunt is demonstrated by color flow Doppler interrogation. AORTA The aortic root and proximal ascending aorta are normal in size on limited imaging. MITRAL VALVE Trace mitral valve regurgitation. AORTIC VALVE Trileaflet aortic valve. No aortic valve stenosis or regurgitation. TRICUSPID VALVE There is trace tricuspid valve regurgitation. PULMONARY VALVE No pulmonary valve regurgitation. VESSELS The inferior vena cava is normal in size. PERICARDIUM No pericardial effusion. Baltazar Molina MD (Electronically Signed) Final Date:22 September 2017 14:00
[2017-09-22] MEDS ORDERED: LIPI10TA PO (14:23)
[2017-09-22 15:05] VITALS: PULSE 72
--- NOTE | 2017-09-22 16:32 | HHI.DS ---
Discharge Summary Admission Date Sep 21, 2017 at 11:02 Discharge Date: Sep 22, 2017 Admitting Diagnosis acute ischemic CVA (1) Neurologic deficit due to acute ischemic cerebrovascular accident (CVA) ICD Code: I63.9 - Cerebral infarction, unspecified; R29.818 - Other symptoms and signs involving the nervous system Diagnosis: Principal Status: Acute (2) Left hand weakness ICD Code: R29.898 - Other symptoms and signs involving the musculoskeletal system Diagnosis: Principal Status: Acute Procedures None Brief History - From Admission Mr. Dasilva is a 71 year old male. He reports that at approximately 8:30 AM this morning with slurred speech and numbness of his left hand, this occurred after he was awake and when he was talking with a repair man. Symptoms have not fully resolved but he has resolution of his speech back to baseline and improving weakness at his left hand.. CT scan in the ER is positive for evidence of acute CVA. No prior history of CVA or TIA is known by the patient. He has taken an aspirin at home with onset of symptoms. He does have a history of seizure in the past, his last seizure was approximately 3 months ago. No missed doses of medications. He does say in the past several months he is also been having frontal headaches. CBC/BMP: 09/22/17 0500 09/22/17 0500 Significant Findings Laboratory Tests Test 09/21/17 09:35 09/22/17 05:00 Red Blood Count 4.33 MIL/MM3 (4.50-5.90) 4.36 MIL/MM3 (4.50-5.90) Mean Platelet Volume 6.3 FL (7.0-11.0) Neutrophils (%) (Auto) 72.9 % (16.0-70.0) 76.3 % (16.0-70.0) Lymphocytes # (Auto) 0.8 TH/MM3 (1.0-4.8) 0.7 TH/MM3 (1.0-4.8) Random Glucose 107 MG/DL (74-106) Estimat Glomerular Filtration Rate 66 ML/MIN (>89) 83 ML/MIN (>89) HDL Cholesterol 38.3 MG/DL (40.0-60.0) 37.2 MG/DL (40.0-60.0) Hospital Course Mr. Dasilva is a 71-year-old male. He is admitted secondary to an acute onset of speech deficit and left hand weakness. His speech deficit resolved. The patient's left hand weakness is persisting. Imaging of the brain showed no CVA. He does have what appears to be an old area of ischemia on the left side of the brain which does not correlate with his present findings. No evidence of acute changes. He had carotid studies, neck imaging, and vascular imaging of the brain. Overall negative workup for acute change. Patient has been cleared by neurology for discharge to home today. He will discharge home with physical therapy of the left hand continue as an outpatient. Medically stable for discharge home. Pt Condition on Discharge: Stable Discharge Disposition: Discharge Home Discharge Time: <= 30 minutes Discharge Instructions DIET: Follow Instructions for: As Tolerated, No Restrictions Activities you can perform: Regular-No Restrictions Follow up Referrals: Neurology - 2 Weeks PCP Follow-up - 2 Weeks New Medications: Atorvastatin (Lipitor) 10 Mg Tab 10 MG PO HS for Cholesterol Management, #30 TAB 0 Refills Continued Medications: Aspirin (Aspirin) 325 Mg Tab 325 MG PO DAILY, #30 TAB 0 Refills Diazepam (Valium) 5 Mg Tab 5 MG PO BID, TAB 0 Refills Guaifenesin ER (Mucus Relief ER) 600 Mg Tab 400 MG PO DAILY PRN for CHEST CONGESTION AND/OR COUGH, TAB 0 Refills Topiramate (Topamax) 100 Mg Tab 100 MG PO BID for Control Seizures, #60 TAB 0 Refills Zolpidem (Zolpidem) 10 Mg Tab 5 MG PO HS PRN for INSOMNIA, TAB 0 Refills Yohannes Meneses MD Sep 22, 2017 16:32
== END 2017-09-22 15:32 | disposition home or self-care (01) ==
LOC: PHED 09:04 → PHEDA 11:02 → PH3B 12:54
PROVIDERS: ADMIT Hospitalist; ATTEND Hospitalist
DX: I63.9 Cerebral infarction, unspecified (principal); G40.909 Epilepsy, unspecified, not intractable, without status epilepticus; I10 Essential (primary) hypertension; I45.2 Bifascicular block; R94.31 Abnormal electrocardiogram [ECG] [EKG]; E78.00 Pure hypercholesterolemia, unspecified; Q25.49 Other congenital malformations of aorta; H91.10 Presbycusis, unspecified ear; H81.09 Meniere's disease, unspecified ear; L30.9 Dermatitis, unspecified; F32.9 Major depressive disorder, single episode, unspecified; Z79.82 Long term (current) use of aspirin; F17.290 Nicotine dependence, other tobacco product, uncomplicated
CPT/HCPCS: 70450; 70496; 70498; 70544; 70551; 80048; 80053; 80061; 82948; 83036; 85025; 85610; 85730; 93005; 93306; 93880; 97162; 97166; 99285; G0378; G8987; G8988; Q9967